=== PATIENT | female | born 1945 | race Caucasian/White ===

== ENCOUNTER → 2020-08-02 | Outpatient (RCR) | payer MEDICARE | LOC: PT 07-08 11:11 | PROVIDERS: ATTEND Neurological Surgery | DX: M48.062 Spinal stenosis, lumbar region with neurogenic claudication (principal) | CPT/HCPCS: 97139 ==

== ENCOUNTER 2020-08-16 10:00 | Outpatient (RCR) | payer MEDICARE | END 2020-09-02 | LOC: PT 10:00 | PROVIDERS: ATTEND Neurological Surgery | DX: M48.062 Spinal stenosis, lumbar region with neurogenic claudication (principal) ==